=== PATIENT | male | born 1980 | race African-American/Black ===

== ENCOUNTER 2017-01-28 22:56 | Emergency (ER) | payer SELFPAY ==
[~2017-01-28] VITALS: Ht 182.9 cm; Wt 88.4 kg
[2017-01-29] MEDS ORDERED: PREDNISONE20 MG PO (02:15)
[2017-01-29 03:06] VITALS: BP 129/71
== END 2017-01-29 03:08 | disposition home or self-care (01) ==
LOC: EME 22:56
DX: J45.901 Unspecified asthma with (acute) exacerbation (principal)
CPT/HCPCS: 94640; 94640 76; 99281; 99285; J7512

== ENCOUNTER 2017-03-12 17:32 | Emergency (ER) | payer SELFPAY ==
[~2017-03-12] VITALS: Ht 182.9 cm; Wt 89.1 kg
[~2017-03-12 17:32] MED LIST: PREDNISONE20 MG PO
[2017-03-12] MEDS ORDERED: PROVENTIL,2.5 MG/3 M IH (20:08)
[2017-03-12] MEDS ORDERED: VENTOLIN HFA18 GM IH (20:08)
[2017-03-12] MEDS ORDERED: PREDNISONE50 MG PO (20:11)
[2017-03-12 20:29] VITALS: BP 128/101
== END 2017-03-12 20:29 | disposition home or self-care (01) ==
LOC: EME 17:32
DX: J45.901 Unspecified asthma with (acute) exacerbation (principal)
CPT/HCPCS: 94640; 94644; 99281; 99284; J2930

== ENCOUNTER 2017-03-22 08:21 | Emergency (ER) | payer SELFPAY ==
[~2017-03-22] VITALS: Ht 182.9 cm; Wt 88.7 kg
[~2017-03-22 08:21] MED LIST changes: +PREDNISONE50 MG PO; +PROVENTIL,2.5 MG/3 M IH; +VENTOLIN HFA18 GM IH
[2017-03-22] MEDS ORDERED: ZYRTEC10 M3 PO (10:07)
[2017-03-22] MEDS ORDERED: FLONASE16 G1 BOTH NARES (10:07)
[2017-03-22] MEDS ORDERED: PREDNISONE20 MG PO (10:07)
[2017-03-22] MEDS ORDERED: DUONEB 2.5-0.5 M3 ML AEROSOL (10:07)
[2017-03-22 10:48] VITALS: BP 121/68
== END 2017-03-22 10:49 | disposition home or self-care (01) ==
LOC: EME 08:21
DX: J45.901 Unspecified asthma with (acute) exacerbation (principal)
CPT/HCPCS: 94640; 99281; 99284; J7512

== ENCOUNTER 2018-01-22 11:16 | Emergency (ER) | payer SELFPAY ==
[~2018-01-22] VITALS: Ht 182.9 cm; Wt 95.1 kg
[~2018-01-22 11:16] MED LIST changes: +DUONEB 2.5-0.5 M3 ML AEROSOL; +FLONASE16 G1 BOTH NARES; +ZYRTEC10 M3 PO
[2018-01-22 11:21] VITALS: BP 144/84
== END 2018-01-22 13:16 | disposition left against medical advice (07) ==
LOC: EME 11:16
DX: R06.02 Shortness of breath (principal); Z53.21 Procedure and treatment not carried out due to patient leaving prior to being seen by health care provider
CPT/HCPCS: 71046; 94640; J7512

== ENCOUNTER 2018-01-28 15:32 | Emergency (ER) | payer SELFPAY ==
[~2018-01-28] VITALS: Ht 182.9 cm; Wt 89.3 kg
[2018-01-28] MEDS ORDERED: PREDNISONE20 MG PO (17:04)
[2018-01-28] MEDS ORDERED: ALBUTEROL2.5 MG/3 M IH (17:04)
[2018-01-28] MEDS ORDERED: DUONEB 2.5-0.5 M3 ML AEROSOL (17:04)
[2018-01-28 18:23] VITALS: BP 116/82
== END 2018-01-28 18:25 | disposition home or self-care (01) ==
LOC: EME 15:32
DX: J45.909 Unspecified asthma, uncomplicated (principal); R06.02 Shortness of breath
CPT/HCPCS: 94644; 99281; 99284; J1100; J7644